=== PATIENT | male | born 1990 | race Caucasian/White ===

== ENCOUNTER 2017-02-23 11:47 | Emergency (ER) | payer OTHER ==
[2017-02-23] MEDS ORDERED: Bupivacaine 0.25% MDV* 50 ML VIAL INJ ONE (13:22)
[2017-02-23] MEDS ORDERED: Acetaminophen TAB* 325 MG PO ONE (13:22)
--- NOTE | 2017-02-23 13:30 | UC ---
Laceration HPI - HPI Summary HPI Summary: Left thumb laceration 15 mm long cut with a knife while trying to cut a frozen bagel - History Of Current Complaint Chief Complaint: UCLaceration Stated Complaint: THUMB LAC Time Seen by Provider: 02/23/17 13:15 Hx Obtained From: Patient Laceration Location: Finger - left thumb Mechanism Of Injury: Sharp Trauma Onset/Duration: Sudden Onset, Still Present Severity: Moderate Pain Intensity: 5 Pain Scale Used: 0-10 Numeric Related History: Dominant Hand Right, Other: - patient does play violin - Allergies/Home Medications Allergies/Adverse Reactions: Allergies Allergy/AdvReac Type Severity Reaction Status Date / Time No Known Allergies Allergy Verified 02/23/17 12:14 Home Medications: Home Medications NK [No Home Medications Reported] 02/23/17 [History Confirmed 02/23/17] PMH/Surg Hx/FS Hx/Imm Hx Previously Healthy: Yes - Surgical History Surgical History: Yes Surgery Procedure, Year, and Place: knee - Family History Known Family History: Positive: None - Social History Occupation: Employed Full-time Lives: Alone Alcohol Use: Occasionally Substance Use Type: None Smoking Status (MU): Never Smoked Tobacco Review of Systems Constitutional: Negative Skin: Other - 15 mm laceration to pad of left thumb Eyes: Negative ENT: Negative Respiratory: Negative Cardiovascular: Negative Gastrointestinal: Negative Genitourinary: Negative Motor: Negative Neurovascular: Negative Musculoskeletal: Negative Neurological: Negative Psychological: Negative Is Patient Immunocompromised?: Yes All Other Systems Reviewed And Are Negative: Yes Physical Exam Triage Information Reviewed: Yes Appearance: Well-Appearing, Well-Nourished, Pain Distress - mild Vital Signs: Initial Vital Signs Temp 97.8 F 02/23/17 12:07 Pulse 70 02/23/17 12:07 Resp 18 02/23/17 12:07 BP 144/65 02/23/17 12:07 Pulse Ox 98 02/23/17 12:07 Vital Signs Reviewed: Yes Eye Exam: Normal Eyes: Positive: Conjunctiva Clear ENT Exam: Normal ENT: Positive: Normal ENT inspection, Hearing grossly normal. Negative: Nasal congestion, Nasal drainage, Trismus, Muffled/hoarse voice Dental Exam: Normal Neck exam: Normal Neck: Positive: Supple, Nontender Respiratory Exam: Normal Respiratory: Positive: Chest non-tender, No respiratory distress, No accessory muscle use Cardiovascular Exam: Normal Cardiovascular: Positive: RRR, Pulses Normal, Brisk Capillary Refill Musculoskeletal Exam: Normal Musculoskeletal: Positive: Strength Intact, ROM Intact, No Edema Neurological Exam: Normal Neurological: Positive: Alert, Muscle Tone Normal Skin Exam: Other Skin: Positive: Other - 15 mm laceration to pad of left thumb Laceration Repair - Laceration Repair 1 Description: Linear Laceration Size After Repair: Length (cm) - 1.5, Width (mm) - 1, Depth (mm) - 4 Modified For Repair: No Type Injection: Digital Anesthesia Used: 0.25% Marcaine - 5cc Cleansing Completed Via Routine Prep: Yes Irrigation With Pressure Irrigation Device: Yes Closure Material: Sutures Closure Method: Single Layer Suture Of: Skin Suture Type: Nylon - 6 number 5.o sutures placed Re-Evaluation - Re-Evaluation First Eval Change: Improved - Patient tolerated well, wound with out bleeding edges are well approximated Laceration Course/Dx - Course/Dx Course Of Treatment: dsd, tylenol, ibuprofen, keep C&D, observe daily for s/s of infection, return in 10 days for suture removal - Differential Dx - Laceration/Wound Differental Diagnoses: Laceration, Puncture Wound Provider Diagnoses: 1.5 cm laceration left thumb with suture repair Discharge - Discharge Plan Condition: Stable Disposition: HOME Patient Education Materials: Laceration (ED), Finger Laceration (ED) Referrals: Fady Peña MD [Medical Doctor] - If Needed Additional Instructions: Return in 10 days for suture removal
[2017-02-23] MEDS ORDERED: Bupivacaine 0.25% SDV* 30 ML INJ ONE (13:34)
[2017-02-23 14:31] VITALS: BP 136/78
== END 2017-02-23 14:40 | disposition home or self-care (01) ==
LOC: UCEAST 11:47
DX: S61.012A Laceration without foreign body of left thumb without damage to nail, initial encounter (principal); W26.0XXA Contact with knife, initial encounter; Y93.G1 Activity, food preparation and clean up
CPT/HCPCS: 99202; A9270-GY; G0463

== ENCOUNTER 2017-03-05 10:49 | Emergency (ER) | payer OTHER ==
[2017-03-05 12:18] VITALS: BP 120/80
--- NOTE | 2017-03-05 12:50 | UC ---
HPI Wound/Suture Re-check - HPI Summary HPI Summary: TEN DAYS AGO HAD SUTURES PLACED HERE IN LEFT THUMB. NO COMPLICATIONS WITH WOUND. TETANUS UTD - History Of Current Complaint Hx Obtained From: Patient Onset/Duration: Sudden Onset, Lasting Days, Resolved Severity: Mild Pain Intensity: 0 Pain Scale Used: 0-10 Numeric <Osiel Grier - Last Filed: 03/05/17 12:46> <Liberty Givens - Last Filed: 03/05/17 13:30> - History Of Current Complaint Chief Complaint: [facility] Stated Complaint: SUTURE REMOVAL Time Seen by Provider: 03/05/17 11:37 - Allergies/Home Medications Allergies/Adverse Reactions: Allergies Allergy/AdvReac Type Severity Reaction Status Date / Time No Known Allergies Allergy Verified 03/05/17 12:16 PMH/Surg Hx/FS Hx/Imm Hx Previously Healthy: Yes - Surgical History Surgical History: Yes Surgery Procedure, Year, and Place: knee - Family History Known Family History: Positive: None Negative: Blood Disorder - Social History Occupation: Employed Full-time Lives: With Family Alcohol Use: Occasionally Substance Use Type: None Smoking Status (MU): Never Smoked Tobacco <Osiel Grier - Last Filed: 03/05/17 12:46> Review of Systems Constitutional: Negative Skin: Other - HEALING WOUND LEFT THUMB Eyes: Negative ENT: Negative Respiratory: Negative Cardiovascular: Negative Gastrointestinal: Negative Genitourinary: Negative Motor: Negative Neurovascular: Negative Musculoskeletal: Negative Neurological: Negative Psychological: Negative Is Patient Immunocompromised?: No All Other Systems Reviewed And Are Negative: Yes <Osiel Grier - Last Filed: 03/05/17 12:46> Physical Exam Triage Information Reviewed: Yes Appearance: Well-Appearing, No Pain Distress, Well-Nourished Vital Signs: Initial Vital Signs Temp 97.8 F 03/05/17 12:16 Pulse 64 03/05/17 12:16 Resp 16 03/05/17 12:16 BP 120/80 03/05/17 12:16 Pulse Ox 97 03/05/17 12:16 Vital Signs Reviewed: Yes Eye Exam: Normal ENT Exam: Normal ENT: Positive: Normal ENT inspection, Hearing grossly normal, TMs normal Dental Exam: Normal Neck exam: Normal Respiratory Exam: Normal Respiratory: Positive: Chest non-tender, Lungs clear, Normal breath sounds, No respiratory distress Cardiovascular Exam: Normal Cardiovascular: Positive: RRR, No Murmur, Pulses Normal Abdominal Exam: Normal Musculoskeletal Exam: Normal Musculoskeletal: Positive: Strength Intact, ROM Intact Neurological Exam: Normal Psychological Exam: Normal Skin: Positive: Other - HEALING WOUND LEFT THUMB WITH 6 X SUTURES <Osiel Grier - Last Filed: 03/05/17 12:46> Vital Signs: Initial Vital Signs Temp 97.8 F 03/05/17 12:16 Pulse 64 03/05/17 12:16 Resp 16 03/05/17 12:16 BP 120/80 03/05/17 12:16 Pulse Ox 97 03/05/17 12:16 <Liberty Givens - Last Filed: 03/05/17 13:30> Procedures - Procedure Summary Procedure Summary: SUTURES REMOVED USING FORCEPS AND SCISSORS. PATIENT TOLERATED PROCEDURE WELL <Osiel Grier - Last Filed: 03/05/17 12:46> Course/Dx - Differential Dx - Laceration/Wound Differential Diagnoses: Suture Removal Provider Diagnoses: SUTURE REMOVAL LEFT THUMB <Osiel Grier - Last Filed: 03/05/17 12:46> Discharge <Osiel Grier - Last Filed: 03/05/17 12:46> <Liberty Givens - Last Filed: 03/05/17 13:30> - Discharge Plan Condition: Stable Disposition: HOME Patient Education Materials: Stitches Removal (ED) Referrals: [facility] [Outside] No Primary Care Phys,NOPCP [Primary Care Provider] - Additional Instructions: . Attestation Statement Scribe Attestation: I was available for consult. This patient was seen by the [facility]. The patient was not presented to, seen by, or examined by me. -Cedric User Type: Provider - I was available for consult. This patient was seen by the [facility]. The patient was not presented to, seen by, or examined by me. -Cedric <Liberty Givens - Last Filed: 03/05/17 13:30>
== END 2017-03-05 12:43 | disposition home or self-care (01) ==
LOC: UCEAST 10:49
DX: Z48.02 Encounter for removal of sutures (principal)